=== PATIENT | female | born 1955 | race Caucasian/White ===

== ENCOUNTER → 2017-04-21 16:41 | Outpatient (CLI) | payer MEDICAID, SELFPAY | PROVIDERS: Visit Provider Physician Assistant | DX: Z79.899 Other long term (current) drug therapy (principal) ==

== ENCOUNTER → 2017-04-22 11:21 | Outpatient (REF) | payer MEDICAID, SELFPAY ==
[2017-04-22 15:01] LABS: Amphetamine/Metha Screen,Urine Negative ng/mL (<1000); Barbiturates Screen,Urine Negative ng/mL (<200); Benzodiazepines Screen,Urine Positive ng/mL (200); Cannabinoid Screen,Urine Positive ng/mL (<50); Cocaine Screen,Urine Positive ng/g (<300); Methadone Screen,Urine Negative ng/mL (<300); Opiate Screen,Urine Negative ng/mL (<300); Phencyclidine Screen,Urine Negative ng/mL (<25)
[2017-04-26 19:16] LABS: Benzoylecgonine (GC/MS) 785 ng/mL (Cutoff=150); Cocaine + Metabolite Positive (.)
== END ==
LOC: LAB 11:21
PROVIDERS: Visit Provider Emergency Medicine
DX: Z79.899 Other long term (current) drug therapy (principal)
CPT/HCPCS: 80305; 80353

== ENCOUNTER → 2017-07-18 10:15 | Outpatient (CLI) | payer MEDICAID, SELFPAY ==
[2017-07-18 14:04] LABS: Amphetamine/Metha Screen,Urine Negative ng/mL (<1000); Barbiturates Screen,Urine Negative ng/mL (<200); Benzodiazepines Screen,Urine Negative ng/mL (200); Cannabinoid Screen,Urine Negative ng/mL (<50); Cocaine Screen,Urine Negative ng/g (<300); Methadone Screen,Urine Negative ng/mL (<300); Opiate Screen,Urine Negative ng/mL (<300); Phencyclidine Screen,Urine Negative ng/mL (<25)
== END ==
PROVIDERS: Visit Provider Emergency Medicine
DX: Z79.899 Other long term (current) drug therapy (principal)
CPT/HCPCS: 80305

== ENCOUNTER → 2017-10-17 09:26 | Outpatient (CLI) | payer MEDICAID, SELFPAY | PROVIDERS: Visit Provider Emergency Medicine ==

== ENCOUNTER → 2018-05-12 14:02 | Outpatient (CLI) | payer MEDICAID, SELFPAY ==
[2018-05-12 14:34] LABS: Basophils % 0.5 % (0.1-2.0); Eosinophils % 0.1 % (0.1-12.0); Hematocrit 46.1 % (37.0-47.0); Hemoglobin 15.8 g/dL (12.2-16.2); Lymphocytes # 2.3 K/mm3 (0.7-4.5); Lymphocytes % 43.9 % (10-50); Mean Corpuscular HGB Conc 34.4 g/dL (31.8-35.4); Mean Corpuscular Hemoglobin 28.9 pg (27.0-31.2); Mean Corpuscular Volume 84.1 fl (81-99); Mean Platelet Volume 8.4 fl (7.4-10.4); Monocytes # 0.3 K/mm3 (0.1-1.0); Monocytes % 4.7 % (1.7-9.3); Neutrophils # 2.7 K/mm3 (1.8-7.8); Neutrophils % 50.8 % (37.0-80.0); Platelet Count 156 K/mm3 (142-424); Red Blood Count 5.48 M/mm3 (4.20-5.40); Red Cell Distribution Width 13.3 % (11.5-17.5); White Blood Count 5.3 K/mm3 (4.8-10.8)
[2018-05-12 15:22] LABS: Alanine Aminotransferase 60 U/L (12-78); Albumin Level 3.9 gm/dL (3.4-5.0); Albumin/Globulin Ratio 0.9 (1.1-1.8); Alkaline Phosphatase 74 U/L (46-116); Anion Gap 17.4 mEq/L (5-15); Aspartate Amino Transferase 46 U/L (15-37); Bilirubin,Total 0.3 mg/dL (0.2-1.0); Blood Urea Nitrogen 5 mg/dL (7-18); Calcium 9.2 mg/dL (8.5-10.1); Carbon Dioxide 26 mmol/L (21.0-32.0); Chloride 101 mmol/L (98-107); Chol/HDL Ratio 4.8 (1-3.5); Cholesterol 121 mg/dL (140-200); Creatinine,Serum 0.69 mg/dL (0.55-1.02); Estimated Glomerular Filt Rate 87 ml/min (>60); Free T4 (Free Thyroxine) 1.36 ng/dl (0.76-1.46); GFR (African American) 105 ML/MIN (>60); Globulin 4.4 gm/dl (1.3-3.2); Glucose 109 mg/dL (74-106); HDL Cholesterol 25 mg/dL (29-89); LDL Cholesterol 62 mg/dL (0-130); Potassium 3.4 mmoL/L (3.5-5.1); Sodium 141 mmol/L (136-145); Thyroid Stimulating Hormone 1.31 uIU/ml (0.358-3.740); Total Protein,Serum 8.3 gm/dL (6.4-8.2); Triglycerides 170 mg/dL (30-200); VLDL Cholesterol 34 mg/dL (0-40)
[2018-05-12 15:52] LABS: Erythrocyte Sedimentation Rate 20 mm/hr (0-30)
== END ==
PROVIDERS: Visit Provider Emergency Medicine
DX: R53.83 Other fatigue (principal); Z79.899 Other long term (current) drug therapy
CPT/HCPCS: 80053; 80061; 84439; 84443; 85025; 85651

== ENCOUNTER → 2018-06-01 14:07 | Outpatient (CLI) | payer MEDICAID, SELFPAY ==
[2018-06-01 15:33] LABS: Amphetamine/Metha Screen,Urine Negative ng/mL (<1000); Barbiturates Screen,Urine Negative ng/mL (<200); Benzodiazepines Screen,Urine Positive ng/mL (<200); Cannabinoid Screen,Urine Positive ng/mL (<50); Cocaine Screen,Urine Positive ng/mL (<300); Methadone Screen,Urine Negative ng/mL (<300); Opiate Screen,Urine Negative ng/mL (<300); Phencyclidine Screen,Urine Negative ng/mL (<25)
[2018-06-05 23:09] LABS: Gabapentin,Urine 572.4 ug/mL (.)
[2018-06-06 16:15] LABS: Benzoylecgonine (GC/MS) 995 ng/mL (Cutoff=150); Cocaine + Metabolite Positive (.)
[2018-06-07 08:14] LABS: Alprazolam Negative (Cutoff=100); Benzodiazepines Positive ng/mL (Cutoff=100); Clonazepam Negative (Cutoff=100); Flurazepam Negative (Cutoff=100); Lorazepam Negative (Cutoff=100); Midazolam Negative (Cutoff=100); Temazepam Positive (.); Triazolam Negative (Cutoff=100)
== END ==
PROVIDERS: Visit Provider Emergency Medicine
DX: Z79.899 Other long term (current) drug therapy (principal)
CPT/HCPCS: 80305; 80307; 80346; 80353

== ENCOUNTER → 2018-06-02 10:14 | Outpatient (CLI) | payer MEDICAID, SELFPAY ==
--- NOTE | 2018-06-02 10:20 | XR_ITS ---
XR chest 2V HISTORY: ITS.REASON: rib pain right side ORDERING PHYSICIAN: Nate Sun MD PATIENT AGE: 62 years COMPARISON: None FINDINGS: The cardiomediastinal silhouette and pulmonary vascularity are within normal limits. Mild atheromatous changes noted of the aorta. Coronary artery calcifications are also present The lungs are clear without infiltrates, suspicious nodules, or pleural effusions. No acute bony abnormalities. IMPRESSION: Atherosclerotic changes, no acute finding
--- NOTE | 2018-06-02 10:20 | CT_ITS ---
CT soft tissue neck w con CLINICAL INDICATION: Bilateral neck mass ITS.REASON: neck mass ORDERING PHYSICIAN: Nate Sun MD PATIENT AGE: 62 years COMPARISON: None TECHNIQUE:Axial images obtained following the intravenous administration of 75 mL's Optiray 350 with sagittal and coronal reformats. All CT scans at the facility use one or more dose reduction, viz: automated exposure control, ma/kV adjustment per patient size (including targeted exams where dose is matched to indication, i.e. head), or iterative reconstruction technique. FINDINGS: Palpable of the neck are marked with BBs. The palpable abnormalities correspond to mildly prominent submandibular glands. No obvious submandibular gland mass or submandibular adenopathy evident. There are some scattered small nodes in the neck bilaterally with no dominant adenopathy apparent. No abnormal fluid collections. Incidental note is made of high-grade short segment stenosis of the proximal aspect of the left subclavian artery of approximately 75-80%. Atheromatous plaque is present involving both carotid bulbs and proximal ICAs with less than 50% stenosis on the right and approximately 50% stenosis of the ostium of the left internal carotid artery. The nasopharynx, oropharynx, hypopharynx, and larynx have an unremarkable appearance. There is posterior extension of the right lobe of the thyroid gland lateral to the esophagus as a normal variant. IMPRESSION: 1. Palpable abnormalities of the neck corresponds to mildly prominent submandibular glands. No neck mass or dominant adenopathy. 2. High-grade short segment stenosis of the proximal aspect of left subclavian artery of 75-80% with mild to moderate stenosis of the ostium of the right internal carotid artery and moderate stenosis of the ostium of the left internal carotid artery of approximately 50%
--- NOTE | 2018-06-02 10:20 | MM_ITS ---
MM Dig screening mamm BI w/CAD CAD Screening COMPARISON: Digital mammograms with CAD 12/21/2015 from [place], [place] INDICATION: There is no personal or family history of breast cancer TECHNIQUE: Standard CC and MLO images were obtained. R2 CAD reviewed. FINDINGS: The breasts are heterogeneously dense lessening the sensitivity mammography. The findings on the lateral symmetrical however. There are multiple scattered benign-appearing macro and microcalcifications in each breast. Is arterial calcination in each breast. There is a possible new lesion just superior to the nipple right breast with irregular borders and a single calcification only deftly seen on the MLO view. However recommend the patient return for spot compression views in the MLO and CC projection and 90 degree lateral view and ultrasound may be necessary as well. IMPRESSION: Diffusely dense parenchymal pattern with possible new slightly suspicious lesion right breast BI-RADS Category: 0 Need Additional Imaging Evaluation RECOMMENDED FOLLOW-UP: IMM - IMMEDIATE FOLLOW-UP RECOMMENDED (A letter has been sent to the patient regarding results of the study.)
[2018-06-02 11:44] LABS: Anion Gap 9.8 mEq/L (5-15); Blood Urea Nitrogen 8 mg/dL (7-18); Calcium 9.3 mg/dL (8.5-10.1); Carbon Dioxide 32 mmol/L (21.0-32.0); Chloride 105 mmol/L (98-107); Creatinine,Serum 0.85 mg/dL (0.55-1.02); Estimated Glomerular Filt Rate 68 ml/min (>60); GFR (African American) 83 ML/MIN (>60); Glucose 89 mg/dL (74-106); Potassium 4.8 mmoL/L (3.5-5.1); Sodium 142 mmol/L (136-145)
== END ==
PROVIDERS: PCP Emergency Medicine; Visit Provider Emergency Medicine
DX: R22.1 Localized swelling, mass and lump, neck (principal); R07.81 Pleurodynia; Z12.31 Encounter for screening mammogram for malignant neoplasm of breast; Z01.818 Encounter for other preprocedural examination
CPT/HCPCS: 36415; 70491; 71046; 77067; 80048

== ENCOUNTER → 2018-06-08 13:50 | Outpatient (CLI) | payer MEDICAID, SELFPAY ==
[2018-06-08 14:30] LABS: Amphetamine/Metha Screen,Urine Negative ng/mL (<1000); Barbiturates Screen,Urine Negative ng/mL (<200); Benzodiazepines Screen,Urine Positive ng/mL (<200); Cannabinoid Screen,Urine Negative ng/mL (<50); Cocaine Screen,Urine Positive ng/mL (<300); Methadone Screen,Urine Negative ng/mL (<300); Opiate Screen,Urine Positive ng/mL (<300); Phencyclidine Screen,Urine Negative ng/mL (<25)
== END ==
PROVIDERS: Visit Provider Emergency Medicine
DX: R89.2 Abnormal level of other drugs, medicaments and biological substances in specimens from other organs, systems and tissues (principal); Z79.899 Other long term (current) drug therapy
CPT/HCPCS: 80305

== ENCOUNTER → 2018-07-10 07:16 | Outpatient (CLI) | payer MEDICAID, SELFPAY ==
--- NOTE | 2018-07-10 07:18 | CA_ITS ---
PROCEDURE: 2-D M-mode and color Doppler study INDICATIONS FOR THE TEST: Chest pain + COPD Heart Murmur Tobacco Smoking+ Palpitations Fatigue Syncope Edema Hypertension+Diabetes Mellitus Rheumatic Fever SOB+KEN Obesity Hyperlipidemia+ Family History HD+ Additional History LUDIN,CAD, GERD PATIENT INFORMATION HEIGHT: 62 WEIGHT:106 GENDER: Female B/P:149/76 2-D/M-MODE INTERPRETATION: 2-D MEASUREMENTS OBSERVED VALUES IN CMS Right Ventricular Dimension (RVDd) 1.7 Interventricular Septum (Thickness)(IVsd) 1.1 Left Ventricular Internal Dimensions(LVIDd) 3.9 Left Ventricular Posterior Wall (Thickness)(LVPWd) 0.9 Aortic Root 3.2 Aortic Cusp Separation 1.7 Left Atrial Dimensions (LAD) 2.8 2D 1. Left atrium is mildly enlarged, left ventricle is normal size, mild concentric left ventricular hypertrophy, visually estimated ejection fraction 55% with no regional wall motion abnormality. 2. The right atrium and right ventricle are mildly enlarged with normal contractility. 3. The aortic valve is thickened and calcified leaflet continue to display mobility. 4. The mitral and tricuspid valve are grossly normal. 5. The pulmonic valve is poorly visualized. 6. No significant pericardial effusion noted. DOPPLER INTERROGATION: Doppler interrogation of the aortic, mitral and tricuspid valvular presence of mild aortic, mild mitral and tricuspid regurgitation, tricuspid regurgitation jet velocity is inadequate for calculation of the right ventricular systolic pressure, grade 1 diastolic dysfunction seen without tissue Doppler evidence of raised left atrial pressure. CONCLUSION: 1. Mildly enlarged left atrium, normal left ventricular size, mild concentric left ventricular hypertrophy, visually estimated ejection fraction 55% with no regional wall motion abnormality, grade 1 diastolic dysfunction seen with tissue Doppler evidence of raised left atrial pressure. 2. Mildly enlarged right ventricle with normal contractility. 3. Mild aortic, mild mitral and tricuspid regurgitation 4. No significant pericardial effusion noted.
--- NOTE | 2018-07-10 07:18 | US_ITS ---
MM Dig mamm DX unilat RT CAD, US breast RT complete Ordering Physician: Nate Sun MD Patient Age: 62 years Female COMPARISON: Recent 06/02/2018 bilateral mammogram As well as [facility] studies from December 2015 right breast.; & Bilateral mammogram October. INDICATION: Further evaluate questionable focal density superior right breast noted on recent screening study TECHNIQUE: 1. Diagnostic right mammogram with Spot views Spot MLO and cc views with full right MLO view. Also added rolled cc views 2. Ultrasound survey entire right breast, including axilla survey .................. DIAGNOSTIC RIGHT MAMMOGRAM WITH SPOT VIEWS The small area of density at the superior breast noted on recent studies appears to dissipate on the additional multiple views. Most likely summation shadow. However patient is to obtain follow-up ultrasound Scattered benign-appearing calcifications right breast also observed and similar to previous study. These are most likely benign and can be followed ............... ULTRASOUND RIGHT BREAST including axillary survey Survey of the entire breast performed & included axillary node survey . No suspicious solid nodule. No cyst. No architectural distortion.. Survey of the right axilla demonstrates a few benign-appearing nodes with the largest measuring 2.8 cm length but benign appearance with normal fatty hilum and thin cortex. Not of concern. Cortex and been normal fatty hilum IMPRESSION: 1. Right mammogram Additional right diagnostic mammogram views today, decreased concern regarding a significant, new unique density at the superior right breast... Minimal density at superior breast is similar to previous studies after projections considered However follow up 6 month follow-up recommended on right . 2. Right breast ultrasound: Unremarkable/. No significant findings. BI-RADS Category: 3 Probably Benign Finding Short Term Follow-up RECOMMENDED FOLLOW-UP: 6M 6 MONTH FOLLOW-UP A letter has been sent to the patient regarding results of the study.)
--- NOTE | 2018-07-10 07:18 | NM_ITS ---
CARDIOLITE SPECT MYOCARDIAL PERFUSION LEXISCAN, REST AND STRESS: History: Hypertension, hyperlipidemia, tobacco use, family history and fatigue Procedure: Patient received a 0.4 mg of intravenous Lexiscan, resting heart rate was 59 bpm resting blood pressure was 180, with Lexiscan maximum heart rate achieved was 100 bpm which is less than 85% with a blood pressure was 137/70. With Lexiscan patient complained of dizziness. Electrocardiogram: Resting electrocardiogram showed sinus rhythm, with Lexiscan there is less than 1.[address] segment depression noted from the baseline EKG. The EKG portion of the Lexiscan Myoview is nondiagnostic. Cardiac stress and resting SPECT images: Cardiac stress and resting SPECT images were obtained using technetium 99 Myoview 31.5 mCi stress and 10.6 mCi at rest. Gated SPECT further analysis of segmental wall motion and calculation of the ejection fraction also done. Cardiac stress and the suspect images show decreased tracer activity in the inferior wall which improves on the resting images suggestive of reversible. Computer derived ejection fraction is over 65% with no regional wall motion abnormality, right ventricle is normal size and contractility. Conclusion: 1. The EKG portion of the Lexiscan Myoview is nondiagnostic. 2. Scintigraphic evidence of mild reversible ischemia involving the inferior wall. Computer derived ejection fraction is over 65% with no regional wall motion abnormality, right ventricle is normal size and contractility. 3. Abnormal Lexiscan Myoview study.
--- NOTE | 2018-07-10 10:46 | HMH.ITSHM ---
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 []atorvastatin asa
== END ==
PROVIDERS: PCP Emergency Medicine; Visit Provider Emergency Medicine
DX: I25.10 Atherosclerotic heart disease of native coronary artery without angina pectoris (principal); R07.9 Chest pain, unspecified; R93.89 Abnormal findings on diagnostic imaging of other specified body structures; I65.29 Occlusion and stenosis of unspecified carotid artery; E78.5 Hyperlipidemia, unspecified; F17.200 Nicotine dependence, unspecified, uncomplicated; Z82.49 Family history of ischemic heart disease and other diseases of the circulatory system; R92.8 Other abnormal and inconclusive findings on diagnostic imaging of breast
CPT/HCPCS: 76641; 77065; 78452; 93017; 93306; A9502; J2785

== ENCOUNTER → 2019-01-08 09:53 | Outpatient (CLI) | payer MEDICAID, SELFPAY ==
[2019-01-11 13:07] LABS: Amphetamine/Metha Screen,Urine Negative ng/mL (<1000); Barbiturates Screen,Urine Negative ng/mL (<200); Benzodiazepines Screen,Urine Negative ng/mL (<200); Cannabinoid Screen,Urine Negative ng/mL (<50); Cocaine Screen,Urine Positive ng/mL (<300); Methadone Screen,Urine Negative ng/mL (<300); Opiate Screen,Urine Negative ng/mL (<300); Phencyclidine Screen,Urine Negative ng/mL (<25)
[2019-01-18 00:07] LABS: Alprazolam Negative (Cutoff=100); Benzodiazepines Negative ng/mL (Cutoff=100); Clonazepam Negative (Cutoff=100); Flurazepam Negative (Cutoff=100); Lorazepam Negative (Cutoff=100); Midazolam Negative (Cutoff=100); Temazepam Negative (Cutoff=100); Triazolam Negative (Cutoff=100)
[2019-01-26 15:53] LABS: Benzoylecgonine (GC/MS) 17440; Cocaine + Metabolite POSITIVE
== END ==
PROVIDERS: Visit Provider Emergency Medicine
DX: Z79.899 Other long term (current) drug therapy (principal); F41.9 Anxiety disorder, unspecified; R89.2 Abnormal level of other drugs, medicaments and biological substances in specimens from other organs, systems and tissues
CPT/HCPCS: 80305; 80346; 80353

== ENCOUNTER → 2019-02-01 14:34 | Outpatient (CLI) | payer MEDICAID, SELFPAY ==
[2019-02-01 16:22] LABS: Amphetamine/Metha Screen,Urine Negative ng/mL (<1000); Barbiturates Screen,Urine Negative ng/mL (<200); Benzodiazepines Screen,Urine Negative ng/mL (<200); Cannabinoid Screen,Urine Negative ng/mL (<50); Cocaine Screen,Urine Positive ng/mL (<300); Methadone Screen,Urine Negative ng/mL (<300); Opiate Screen,Urine Negative ng/mL (<300); Phencyclidine Screen,Urine Negative ng/mL (<25)
== END ==
PROVIDERS: Visit Provider Emergency Medicine
DX: Z79.899 Other long term (current) drug therapy (principal)
CPT/HCPCS: 80305

== ENCOUNTER → 2019-03-31 13:43 | Outpatient (CLI) | payer MEDICAID, SELFPAY ==
[2019-03-31 14:48] LABS: Amphetamine/Metha Screen,Urine Negative ng/mL (<1000); Barbiturates Screen,Urine Negative ng/mL (<200); Benzodiazepines Screen,Urine Negative ng/mL (<200); Cannabinoid Screen,Urine Negative ng/mL (<50); Cocaine Screen,Urine Negative ng/mL (<300); Methadone Screen,Urine Negative ng/mL (<300); Opiate Screen,Urine Negative ng/mL (<300); Phencyclidine Screen,Urine Negative ng/mL (<25)
== END ==
PROVIDERS: Visit Provider Emergency Medicine
DX: Z79.899 Other long term (current) drug therapy (principal)
CPT/HCPCS: 80305

== ENCOUNTER → 2019-04-07 09:38 | Outpatient (CLI) | payer MEDICAID, SELFPAY ==
--- NOTE | 2019-04-07 09:39 | CA_ITS ---
APPROVED REPORT Museum Guide: Lottie Beth RDCS Indications Leg Pain Hematoma Pulsatile Mass Pt had cath 03/17/18, pain since cath Findings Groin: Right Positive for Pseudoaneurysm Visualization of neck: Yes Size: 2.4 cm Flow noted within: Yes Findings Study suggests 2.4 cm pulsatile mass seen right groin, probable pseudoaneuysrm. Results called to Dr. Garcia at 10:06 am 04/07/19. Conclusion Study suggests 2.4 cm pulsatile mass seen right groin, probable pseudoaneuysrm. Results called to Dr. Garcia at 10:06 am 04/07/19. Electronically signed by : Eren Grey, 04/07/2019 12:03:17
== END ==
PROVIDERS: PCP Emergency Medicine; Visit Provider Emergency Medicine
DX: R10.31 Right lower quadrant pain (principal); Z98.890 Other specified postprocedural states
CPT/HCPCS: 93926

== ENCOUNTER → 2019-04-28 16:47 | Outpatient (CLI) | payer MEDICAID, SELFPAY | PROVIDERS: Visit Provider Emergency Medicine | DX: R82.90 Unspecified abnormal findings in urine (principal) | CPT/HCPCS: 87086; 87088 ==